=== PATIENT | female | born 2000 | race Hispanic/Latino ===

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

== ENCOUNTER 2024-05-12 11:54 | Emergency (ER) | payer BC, OTHER, SELFPAY | END 2024-05-12 13:28 | disposition home or self-care (01) | LOC: NAV ERS 11:54 | DX: S90.121A Contusion of right lesser toe(s) without damage to nail, initial encounter (principal); W22.8XXA Striking against or struck by other objects, initial encounter | CPT/HCPCS: 99283 ==